=== PATIENT | female | born 1980 | race Two or more races ===

== ENCOUNTER 2023-07-26 23:13 | Emergency (ER) | payer OTHER ==
[2023-07-26 23:34] VITALS: BP 122/62; PULSE 68; RESP 20; TEMP 98.2; BMI 22.7
[2023-07-27] MEDS ORDERED: ACETAMINOPHEN 500 MG TABLET (FP) PO ONE (00:44)
== END 2023-07-27 02:00 | disposition home or self-care (01) ==
LOC: JER 23:13
DX: K08.89 Other specified disorders of teeth and supporting structures (principal); K02.9 Dental caries, unspecified
CPT/HCPCS: 99283-25